=== PATIENT | female | born 1970 | race Caucasian/White ===

== ENCOUNTER 2016-07-06 15:12 | Emergency (ER) | payer MEDICARE, MEDICAID ==
[~2016-07-06] VITALS: Ht 170.2 cm; Wt 147.0 kg
[2016-07-06] MEDS ORDERED: morphine INJ 2 MG/ML 1 ML SYRINGE IV PRN (15:35)
[2016-07-06] MEDS ORDERED: DIAZEPAM 10 MG/2 ML (VALIUM) SYRINGE IV ONE (15:35)
[2016-07-06] MEDS ORDERED: KETOROLAC 30 MG/ML (TORADOL) 1 ML VIAL IV ONE (15:35)
[2016-07-06] MEDS ORDERED: ONDANSETRON 2 MG/ML (Z0FRAN) 2 ML VIAL IV ONE (15:35)
[2016-07-06] MEDS ORDERED: SODIUM CHLORIDE FLUSH 10 ML SYR IV PRN (15:45)
[2016-07-06 16:25] VITALS: BP 113/98
== END 2016-07-06 17:00 | disposition home or self-care (01) ==
LOC: ED 15:13
DX: M54.6 Pain in thoracic spine (principal); M62.830 Muscle spasm of back
CPT/HCPCS: 72072; 96374; 96375; 99284; J1885; J2270; J2405; J3360; 99283

== ENCOUNTER → 2016-07-06 | Outpatient (CLI) | payer MEDICARE, MEDICAID | LOC: EMS 15:10 | PROVIDERS: ATTEND Family Medicine | DX: M54.6 Pain in thoracic spine (principal) ==